=== PATIENT | female | born 1945 | race Caucasian/White ===

== ENCOUNTER 2017-12-05 10:52 | Emergency (ER) | payer MEDICARE, OTHER ==
[~2017-12-05] VITALS: Ht 162.6 cm; Wt 52.2 kg
--- NOTE | 2017-12-05 11:10 | NUR ---
PT UNABLE TO SPEAK - NAD NOTED, VSS, RESP EVEN AND UNLABORED. PT PUT ON MONITOR, WAITING FOR MD MADDEN.
[2017-12-05 15:09] VITALS: BP 127/75
--- NOTE | 2017-12-05 15:11 | NUR ---
Patient discharged to home in stable condition. Written and verbal after care instructions given. Patient verbalizes understanding of instruction.
== END 2017-12-05 15:10 | disposition home or self-care (01) ==
LOC: ER 10:57
DX: M79.661 Pain in right lower leg (principal); S92.351A Displaced fracture of fifth metatarsal bone, right foot, initial encounter for closed fracture; I73.9 Peripheral vascular disease, unspecified; F32.9 Major depressive disorder, single episode, unspecified; E78.5 Hyperlipidemia, unspecified; Z86.73 Personal history of transient ischemic attack (TIA), and cerebral infarction without residual deficits; Z88.5 Allergy status to narcotic agent; Z91.040 Latex allergy status; Z88.8 Allergy status to other drugs, medicaments and biological substances; X58.XXXA Exposure to other specified factors, initial encounter; Y93.89 Activity, other specified; Y92.89 Other specified places as the place of occurrence of the external cause; Y99.8 Other external cause status
CPT/HCPCS: 73551; 73560; 73590; 73620; 99284; A4606; 73552; Z7610

== ENCOUNTER 2018-01-08 19:33 | Inpatient (IN) | payer MEDICARE, MEDICAID ==
[~2018-01-08] VITALS: Ht 162.6 cm; Wt 65.3 kg
[2018-01-08 20:55] LABS: HEMATOCRIT 40 % (33-45); HEMOGLOBIN 13.6 g/dL (11.5-14.8); LYMPHOCYTES # (AUTO) 0.4 /CMM (0.8-4.8); LYMPHOCYTES % (AUTO) 8.1 % (20.0-44.0); MEAN CORPUSCULAR HEMOGLOBIN 30 PG (26.0-33.0); MEAN CORPUSCULAR HGB CONC 34 g/dl (31.0-36.0); MEAN CORPUSCULAR VOLUME 89 fL (82-100); MONOCYTES # (AUTO) 0.6 /CMM (0.1-1.30); MONOCYTES % (AUTO) 11.6 % (2.0-12.0); NEUTROPHILS # (AUTO) 4.5 /CMM (1.8-8.9); NEUTROPHILS % (AUTO) 80.3 % (43.0-81.0); PLATELET COUNT (AUTO) 205 /CMM (150-450); RDW COEFFICIENT OF VARIATION 11.9 (11.5-15.0); RED BLOOD CELL COUNT(AUTO) 4.52 MIL/uL (4.0-5.2); WHITE BLOOD COUNT (AUTO) 5.5 K/uL (4.3-11.0)
[2018-01-08] MEDS ORDERED: IV NS 0.9% 1,000 ML BAG IV ONE (21:00)
[2018-01-08 21:04] LABS: CALCIUM, SERUM 8.5 mg/dL (8.5-10.1); CREATININE 2.1 mg/dL (0.6-1.3)
[2018-01-08 21:09] LABS: ALBUMIN 3.3 g/dL (3.4-5.0); BILIRUBIN,DIRECT 0.1 mg/dL (0.0-0.2); BILIRUBIN,TOTAL 0.2 mg/dL (0.2-1.0)
[2018-01-08 21:13] LABS: APPEARANCE,URINE Clear (CLEAR); BILIRUBIN,URINE Negative (NEGATIVE); BLOOD, URINE Small Ery/uL (NEGATIVE); COLOR,URINE Yellow (YELLOW); KETONES,URINE Negative (NEGATIVE); LEUKOCYTE ESTERASE ,URINE Negative (NEGATIVE); NITRITE, URINE Negative (NEGATIVE); PROTEIN,URINE 100 mg/dl (NEGATIVE); UGLUCOSE Negative (NEGATIVE); UROBILINOGEN,URINE 0.2 EU/dL (0.2)
[2018-01-08 21:27] LABS: BACTERIA,URINE Few /HPF (None Seen); SQUAMOUS EPITHELIAL CELL,UR Few /HPF (None Seen); WBC,URINE 0-2 /HPF (0-3)
[2018-01-08 21:28] LABS: URINE AMORPHOUS URATE Moderate /HPF (None Seen)
[2018-01-08] MEDS ORDERED: Z GUARD REMEDY 2 OZ OINT TP PRN (23:00)
[2018-01-08] MEDS ORDERED: MAG HYDROX/AL HYDROX/SIMETH 30 ML UDC PO PRN (23:00)
[2018-01-08] MEDS ORDERED: ONDANSETRON HCL/PF 4 MG/2 ML VIAL IVP PRN (23:00)
[2018-01-08] MEDS ORDERED: MAGNESIUM HYDROXIDE 30 ML UDC PO PRN (23:00)
[2018-01-08 23:10] VITALS: BP 142/76
[2018-01-08 23:31] VITALS: BP 142/76
[2018-01-08] MEDS ORDERED: LEVO50TA8 PO (23:43)
[2018-01-08] MEDS ORDERED: ASPI-1152 PO (23:43)
[2018-01-08] MEDS ORDERED: BACL10TA PO (23:43)
[2018-01-08] MEDS ORDERED: LEVE750T4 PO (23:43)
[2018-01-08] MEDS ORDERED: VENL75TA4 PO (23:43)
[2018-01-08] MEDS ORDERED: FURO40TA5 PO (23:43)
[2018-01-08] MEDS ORDERED: AMOX500C2 PO (23:43)
[2018-01-08] MEDS ORDERED: POT25TAB5 PO (23:43)
[2018-01-08] MEDS ORDERED: SIMV20TA6 PO (23:43)
[2018-01-08] MEDS: ACETAMINOPHEN 325 MG TABLET PO PRN (23:50)
[2018-01-09] MEDS: IV NS 0.9% 1,000 ML IV PRN ×2 (00:28→13:23)
[2018-01-09 07:59] LABS: BASOPHILS % (AUTO) 0.2 % (0.0-2.0); HEMATOCRIT 41 % (33-45); HEMOGLOBIN 13.9 g/dL (11.5-14.8); LYMPHOCYTES # (AUTO) 0.7 /CMM (0.8-4.8); LYMPHOCYTES % (AUTO) 15.3 % (20.0-44.0); MEAN CORPUSCULAR HEMOGLOBIN 31 PG (26.0-33.0); MEAN CORPUSCULAR HGB CONC 34 g/dl (31.0-36.0); MEAN CORPUSCULAR VOLUME 90 fL (82-100); MONOCYTES # (AUTO) 0.4 /CMM (0.1-1.30); MONOCYTES % (AUTO) 8.8 % (2.0-12.0); NEUTROPHILS # (AUTO) 3.5 /CMM (1.8-8.9); NEUTROPHILS % (AUTO) 75.7 % (43.0-81.0); PLATELET COUNT (AUTO) 168 /CMM (150-450); RDW COEFFICIENT OF VARIATION 12.7 (11.5-15.0); RED BLOOD CELL COUNT(AUTO) 4.53 MIL/uL (4.0-5.2); WHITE BLOOD COUNT (AUTO) 4.6 K/uL (4.3-11.0)
[2018-01-09 08:00] VITALS: BP 139/72
[2018-01-09] MEDS: METRONIDAZOLE 500MG/ NS 100ML 500 MG in PREMIX 1 EA IV SCH ×3 (08:15→17:28)
[2018-01-09 08:17] LABS: CALCIUM, SERUM 8.6 mg/dL (8.5-10.1); CREATININE 1.4 mg/dL (0.6-1.3); PHOSPHORUS 3.1 mg/dL (2.5-4.9); POTASSIUM 3.5 mmol/L (3.5-5.1)
[2018-01-09] MEDS: LEVETIRACETAM (250 MG) 250 MG TABLET PO SCH ×3 (08:20→20:36)
[2018-01-09] MEDS: ASPIRIN EC 81 MG TABLET.DR PO SCH (08:20)
[2018-01-09] MEDS: LEVOTHYROXINE SODIUM 50 MCG TABLET PO SCH (08:20)
[2018-01-09] MEDS: BACLOFEN (10 MG) 10 MG TABLET PO SCH ×3 (08:20→17:17)
[2018-01-09 09:50] LABS: THYROID STIMULATING HORMONE 4.379 uIU/mL (0.358-3.74)
[2018-01-09] MEDS ORDERED: IV NS 0.9% 250 ML BAG IV ONE (10:30)
[2018-01-09] MEDS ORDERED: POTASSIUM CHLORIDE 20 MEQ TAB.PRT.SR PO ONE (12:30)
[2018-01-09 16:00] VITALS: BP 143/73
[2018-01-09] MEDS ORDERED: IV NS 0.9% 500 ML IV ONE (16:00)
[2018-01-09] MEDS: SIMVASTATIN 20 MG TABLET PO SCH (17:17)
[2018-01-09 20:00] VITALS: BP 146/68
[2018-01-09] MEDS: ACETAMINOPHEN 325 MG TABLET PO PRN (20:36)
[2018-01-09] MEDS: VENLAFAXINE 37.5 MG TABLET PO SCH (21:32)
[2018-01-10] MEDS: METRONIDAZOLE 500MG/ NS 100ML 500 MG in PREMIX 1 EA IV SCH ×4 (00:05→17:23)
[2018-01-10] MEDS: IV NS 0.9% 1,000 ML IV PRN ×2 (03:20→21:11)
[2018-01-10 08:00] VITALS: BP 152/69
[2018-01-10] MEDS: LEVOTHYROXINE SODIUM 50 MCG TABLET PO SCH (08:07)
[2018-01-10] MEDS: ASPIRIN EC 81 MG TABLET.DR PO SCH (08:07)
[2018-01-10] MEDS: BACLOFEN (10 MG) 10 MG TABLET PO SCH ×3 (08:08→17:23)
[2018-01-10] MEDS: LEVETIRACETAM (250 MG) 250 MG TABLET PO SCH ×3 (08:08→21:11)
[2018-01-10 08:10] LABS: BASOPHILS % (AUTO) 0.1 % (0.0-2.0); HEMATOCRIT 36 % (33-45); HEMOGLOBIN 12.3 g/dL (11.5-14.8); LYMPHOCYTES # (AUTO) 0.6 /CMM (0.8-4.8); MEAN CORPUSCULAR HEMOGLOBIN 31 PG (26.0-33.0); MEAN CORPUSCULAR HGB CONC 34 g/dl (31.0-36.0); MEAN CORPUSCULAR VOLUME 89 fL (82-100); MONOCYTES # (AUTO) 0.2 /CMM (0.1-1.30); MONOCYTES % (AUTO) 4.6 % (2.0-12.0); NEUTROPHILS # (AUTO) 3.7 /CMM (1.8-8.9); NEUTROPHILS % (AUTO) 82.3 % (43.0-81.0); PLATELET COUNT (AUTO) 188 /CMM (150-450); RDW COEFFICIENT OF VARIATION 12.5 (11.5-15.0); RED BLOOD CELL COUNT(AUTO) 4.04 MIL/uL (4.0-5.2); WHITE BLOOD COUNT (AUTO) 4.5 K/uL (4.3-11.0)
[2018-01-10 08:25] LABS: CALCIUM, SERUM 8.5 mg/dL (8.5-10.1); MAGNESIUM 1.9 mg/dL (1.8-2.4); PHOSPHORUS 2.2 mg/dL (2.5-4.9); POTASSIUM 2.9 mmol/L (3.5-5.1)
[2018-01-10] MEDS: POTASSIUM CHLORIDE 20 MEQ TAB.PRT.SR PO SCH ×3 (12:04→14:25)
[2018-01-10] MEDS ORDERED: K PHOS NEUTRAL 250 MG TABLET PO ONE (13:30)
[2018-01-10 16:06] VITALS: BP 130/72
[2018-01-10] MEDS: SIMVASTATIN 20 MG TABLET PO SCH (17:23)
[2018-01-10 20:00] VITALS: BP_SYST 104; BP_DIAS 45; BP_DIAS 55
[2018-01-10] MEDS: VENLAFAXINE 37.5 MG TABLET PO SCH (21:11)
[2018-01-11] MEDS: METRONIDAZOLE 500MG/ NS 100ML 500 MG in PREMIX 1 EA IV SCH ×2 (00:06→05:28)
[2018-01-11 06:54] LABS: BASOPHILS % (AUTO) 0.1 % (0.0-2.0); EOSINOPHILS % (AUTO) 0.1 % (0.0-6.0); HEMATOCRIT 38 % (33-45); HEMOGLOBIN 12.8 g/dL (11.5-14.8); LYMPHOCYTES # (AUTO) 0.8 /CMM (0.8-4.8); LYMPHOCYTES % (AUTO) 13.1 % (20.0-44.0); MEAN CORPUSCULAR HEMOGLOBIN 30 PG (26.0-33.0); MEAN CORPUSCULAR HGB CONC 34 g/dl (31.0-36.0); MEAN CORPUSCULAR VOLUME 89 fL (82-100); MONOCYTES % (AUTO) 0.7 % (2.0-12.0); NEUTROPHILS # (AUTO) 5.3 /CMM (1.8-8.9); PLATELET COUNT (AUTO) 181 /CMM (150-450); RDW COEFFICIENT OF VARIATION 12.6 (11.5-15.0); WHITE BLOOD COUNT (AUTO) 6.1 K/uL (4.3-11.0)
[2018-01-11 07:09] LABS: CALCIUM, SERUM 8.6 mg/dL (8.5-10.1); MAGNESIUM 1.8 mg/dL (1.8-2.4); PHOSPHORUS 2.1 mg/dL (2.5-4.9)
[2018-01-11 08:00] VITALS: BP 125/62
[2018-01-11] MEDS: LEVETIRACETAM (250 MG) 250 MG TABLET PO SCH ×2 (08:22→12:23)
[2018-01-11] MEDS: BACLOFEN (10 MG) 10 MG TABLET PO SCH ×2 (08:22→12:23)
[2018-01-11] MEDS: ASPIRIN EC 81 MG TABLET.DR PO SCH (08:22)
[2018-01-11] MEDS: LEVOTHYROXINE SODIUM 50 MCG TABLET PO SCH (08:22)
[2018-01-11] MEDS ORDERED: METR500T PO (11:34)
[2018-01-11] MEDS ORDERED: LEVO500T2 PO (11:34)
[2018-01-11] MEDS ORDERED: LEVOFLOXACIN (750 MG) 750 MG TABLET PO SCH (12:00)
[2018-01-11] MEDS ORDERED: METRONIDAZOLE 250 MG TABLET PO SCH (12:00)
[2018-01-11] MEDS: POTASSIUM CHLORIDE 20 MEQ TAB.PRT.SR PO SCH ×3 (12:23→14:39)
[2018-01-11] MEDS ORDERED: K PHOS NEUTRAL 250 MG TABLET PO ONE (14:30)
[2018-01-11] MEDS ORDERED: METRONIDAZOLE 500 MG TABLET PO SCH (18:00)
== END 2018-01-11 15:30 | DRG 871 ==
LOC: ER 19:37 → MED 22:09
PROVIDERS: ADMIT Nurse Practitioner Acute Care; ATTEND Nurse Practitioner Acute Care
PROC: 05H633Z Insertion of Infusion Device into Left Subclavian Vein, Percutaneous Approach (ICD-10-PCS; principal; 2018-01-09)
DX: A41.9 Sepsis, unspecified organism (principal); G93.41 Metabolic encephalopathy; N17.0 Acute kidney failure with tubular necrosis; A04.72 Enterocolitis due to Clostridium difficile, not specified as recurrent; E46 Unspecified protein-calorie malnutrition; I69.951 Hemiplegia and hemiparesis following unspecified cerebrovascular disease affecting right dominant side; I69.920 Aphasia following unspecified cerebrovascular disease; I10 Essential (primary) hypertension; E03.9 Hypothyroidism, unspecified; F32.9 Major depressive disorder, single episode, unspecified; E78.5 Hyperlipidemia, unspecified; G40.909 Epilepsy, unspecified, not intractable, without status epilepticus; I73.9 Peripheral vascular disease, unspecified; E86.9 Volume depletion, unspecified; T50.1X5A Adverse effect of loop [high-ceiling] diuretics, initial encounter; E86.0 Dehydration; N20.0 Calculus of kidney; E83.39 Other disorders of phosphorus metabolism; Z87.891 Personal history of nicotine dependence
CPT/HCPCS: 36415; 36569; 70450-TC; 71045-TC; 80048-TC; 80061-TC; 80076-TC; 81000-TC; 83605-TC; 83690-TC; 83735-TC; 84100-TC; 84443-TC; 85025-TC; 87040-TC; 87081-TC; 87400; 92611-TC; A4216; A4606; J3490; J7030; J7040; Z7610

== ENCOUNTER 2022-04-06 15:33 | Emergency (ER) | payer MEDICARE, OTHER ==
[~2022-04-06] VITALS: Ht 162.6 cm; Wt 63.5 kg
[~2022-04-06 15:33] MED LIST: ASPI-1420 PO; BACL10TA PO; FURO40TA5 PO; LEVE750T4 PO; LEVO500T2 PO; LEVO50TA8 PO; METR500T PO; POT25TAB5 PO; SIMV-46 PO; VENL75TA4 PO
--- NOTE | 2022-04-06 15:52 | NUR ---
To ER bed 9, BIBA Daughter "pain on left LE since last sunday." from [facility], hx of stroke 11yrs ago, right upper and lower extremity weakness, aphasic, connected to monitor, awaiting md harris
--- NOTE | 2022-04-06 16:03 | NUR ---
Dr Barry at bedside for eval
--- NOTE | 2022-04-06 16:30 | NUR ---
PT BACK FROM CT VIA TRAV
[2022-04-06] MEDS ORDERED: KETOROLAC TROMETHAMINE INJ 60 MG/2 ML VIAL IM ONE ×2 (17:27→17:30)
[2022-04-06] MEDS ORDERED: TRAMADOL HCL 50 MG TABLET ONE (17:28)
[2022-04-06] MEDS ORDERED: TRAMADOL HCL 50 MG TABLET PO ONE (17:30)
[2022-04-06] MEDS ORDERED: HYDR-4209 PO (18:16)
[2022-04-06] MEDS ORDERED: IBUP-1957 PO (18:16)
[2022-04-06] MEDS ORDERED: TRAM50TA2 PO (18:16)
--- NOTE | 2022-04-06 18:27 | NUR ---
Patient discharged to home with daughter in stable condition. Written and verbal after care instructions given. Patient verbalizes understanding of instruction.
[2022-04-06 18:28] VITALS: BP 139/61
== END 2022-04-06 18:28 | disposition home or self-care (01) ==
LOC: ER 15:33
DX: Q72.5 Longitudinal reduction defect of tibia (principal); E78.5 Hyperlipidemia, unspecified; F32.A Depression, unspecified; F17.200 Nicotine dependence, unspecified, uncomplicated; Z86.69 Personal history of other diseases of the nervous system and sense organs; Z88.8 Allergy status to other drugs, medicaments and biological substances; Z79.899 Other long term (current) drug therapy
CPT/HCPCS: 73700; 93971; 96372; 99284; J1885

== ENCOUNTER 2024-10-11 22:08 | Emergency (ER) | payer MEDICARE, OTHER ==
[~2024-10-11] VITALS: Ht 167.6 cm; Wt 71.2 kg
[~2024-10-11 22:08] MED LIST changes: +HYDR-4209 PO; +IBUP-1957 PO; +TRAM50TA2 PO
[2024-10-11 22:57] LABS: BASOPHILS % (AUTO) 0.5 % (0.0-2.0); EOSINOPHILS % (AUTO) 0.2 % (0.0-6.0); HEMATOCRIT 38 % (33-45); HEMOGLOBIN 12.4 g/dL (11.5-14.8); LYMPHOCYTES # (AUTO) 1.5 K/uL (0.8-4.8); LYMPHOCYTES % (AUTO) 20.7 % (20.0-44.0); MEAN CORPUSCULAR HEMOGLOBIN 29 PG (26.0-33.0); MEAN CORPUSCULAR HGB CONC 32 g/dl (31.0-36.0); MEAN CORPUSCULAR VOLUME 90 fL (82-100); MONOCYTES # (AUTO) 0.5 K/uL (0.1-1.30); MONOCYTES % (AUTO) 7.1 % (2.0-12.0); NEUTROPHILS # (AUTO) 5.1 K/uL (1.8-8.9); NEUTROPHILS % (AUTO) 71.5 % (43.0-81.0); PLATELET COUNT (AUTO) 223 K/uL (150-450); RED BLOOD CELL COUNT(AUTO) 4.25 MIL/uL (4.0-5.2); RED CELL DISTRIBUTION WIDTH 13.3 % (11.5-15.0); WHITE BLOOD COUNT (AUTO) 7.2 K/uL (4.3-11.0)
[2024-10-11 23:06] LABS: CALCIUM, SERUM 8.9 mg/dL (8.5-10.1); CARBON DIOXIDE 28 mmol/L (21-32); CHLORIDE 106 mmol/L (98-107); GLUCOSE 105 mg/dL (74-106); POTASSIUM 4.1 mmol/L (3.5-5.1); SODIUM SERUM 143 mmol/L (136-145); UREA NITROGEN, BLOOD 20 mg/dL (7-18)
[2024-10-11 23:12] LABS: ALANINE AMINOTRANSFERASE 12 U/L (12-78); ALBUMIN 3.3 g/dL (3.4-5.0); ALKALINE PHOSPHATASE 110 U/L (46-116); ASPARTATE AMINOTRANSFERASE 14 U/L (15-37); BILIRUBIN,DIRECT 0.1 mg/dL (0.0-0.2); BILIRUBIN,TOTAL 0.2 mg/dL (0.2-1.0); INR 1.03 (0.91-1.10); PARTIAL THROMBOPLASTIN TIME 24.2 SEC (24.3-34.3); PROTHROMBIN TIME 10.9 SECS (9.2-11.1); TOTAL PROTEIN, SERUM 7.2 g/dL (6.4-8.2)
[2024-10-12 03:04] VITALS: BP 145/71; TEMP 98; O2SAT 96
== END 2024-10-12 03:05 | disposition home or self-care (01) ==
LOC: ER 22:14
DX: R51.9 Headache, unspecified (principal); M25.552 Pain in left hip; E78.5 Hyperlipidemia, unspecified; F17.200 Nicotine dependence, unspecified, uncomplicated; R06.00 Dyspnea, unspecified; R07.9 Chest pain, unspecified; F32.A Depression, unspecified; Z79.1 Long term (current) use of non-steroidal anti-inflammatories (NSAID); Z79.82 Long term (current) use of aspirin; Z79.899 Other long term (current) drug therapy; Z86.73 Personal history of transient ischemic attack (TIA), and cerebral infarction without residual deficits; Z88.5 Allergy status to narcotic agent; W01.0XXA Fall on same level from slipping, tripping and stumbling without subsequent striking against object, initial encounter; Y93.89 Activity, other specified; Y92.89 Other specified places as the place of occurrence of the external cause; Y99.8 Other external cause status
CPT/HCPCS: 36415; 70450-TC; 71045-TC; 72125-TC; 73700-TC; 80048-TC; 80076-TC; 82962-TC; 84484-TC; 85025-TC; 85730-TC; 86850-TC